=== PATIENT | male | born 1990 | race Caucasian/White ===

== ENCOUNTER 2017-08-15 11:20 | Emergency (ER) | payer MEDICAID, OTHER ==
[2017-08-15 12:20] LABS: ABS Basophils 0 10^3/ul (0-0.2); ABS Eosinophils 0.1 10^3/ul (0-0.6); ABS Lymphocytes 1.6 10^3/ul (1.0-4.8); ABS Monocytes 0.5 10^3/ul (0-0.8); ABS Neutrophils 3.1 10^3/ul (1.5-7.7); ABS Nucleated RBC 0 10^3/ul; Eosinophil % 1.5 % (0-6); Hematocrit 41 % (42-52); Hemoglobin 14.2 g/dl (14.0-18.0); Lymphocyte % 29.8 % (25-47); Mean Corpuscular HGB Conc 34 g/dl (31-36); Mean Corpuscular Hemoglobin 31 pg (27-31); Mean Corpuscular Volume 92 fL (80-94); Mean Platelet Volume 8.2 um3 (7.4-10.4); Nucleated Red Blood Cells % 0.1; Platelet Count 245 10^3/ul (150-450); Red Blood Count 4.52 10^6/ul (4.0-5.4); Red Cell Distribution Width 15 % (10.5-15); White Blood Count 5.3 10^3/ul (3.5-10.8)
[2017-08-15] MEDS ORDERED: Acetaminophen TAB* 325 MG PO ONE (12:37)
[2017-08-15] MEDS ORDERED: Acetaminophen TAB* 325 MG ONE (12:40)
[2017-08-15 12:41] LABS: EGFR Non-African American 121.2 (>60)
[2017-08-15 12:52] LABS: Urine Appearance Clear; Urine Blood Negative (Negative); Urine Color Yellow; Urine Ketones Negative (Negative); Urine Protein Negative (Negative); Urine Specific Gravity 1.008 (1.010-1.030); Urine Urobilinogen Positive (Negative)
--- NOTE | 2017-08-15 13:00 | RAD ---
HISTORY: Fall after drug overdose COMPARISONS: None TECHNIQUE: Multiple contiguous axial CT scans were obtained of the head without intravenous contrast. FINDINGS: HEMORRHAGE/INFARCT: There is no hemorrhage or acute infarct. MASSES/SHIFT: There is no mass or shift. EXTRA-AXIAL SPACES: There are no extra-axial fluid collections. SULCI AND VENTRICLES: The sulci and ventricles are normal in size and position for the patient's stated age. CEREBRUM: There are no focal parenchymal abnormalities. BRAINSTEM: There are no focal parenchymal abnormalities. CEREBELLUM: There are no focal parenchymal abnormalities. VESSELS: The vessels are grossly normal. PARANASAL SINUSES: The paranasal sinuses are clear. ORBITS: The orbits are unremarkable. BONES AND SOFT TISSUE: No bone or soft tissue abnormalities are noted. OTHER: None IMPRESSION: NO ACUTE INTRACRANIAL PATHOLOGY.
--- NOTE | 2017-08-15 13:02 | RAD ---
HISTORY: Fall, right jaw pain COMPARISONS: None TECHNIQUE: Multiple contiguous axial CT scans were obtained of the face without intravenous contrast, with coronal and sagittal multiplanar reformations. FINDINGS: BONES: There is no displaced fracture or dislocation. The orbital rim is intact. The zygomatic arch is intact. The pterygoid plates are intact. ORBITS: The globes are round. The optic nerves are symmetric. The extraocular musculature is normal. There is no post septal or intraconal inflammatory change. There is no retrobulbar hematoma. PARANASAL SINUSES: There is mild polypoid mucosal thickening versus small mucous retention cyst of the maxillary sinuses bilaterally. There is partial opacification of the ethmoid air cells anteriorly on the right. The nasal septum is deviated to the left with left-sided spurring. BRAIN AND SOFT TISSUE: Unremarkable. OTHER: None. IMPRESSION: 1. NO FACIAL FRACTURE. 2. MILD SINUS MUCOSAL INFLAMMATORY DISEASE, WITHOUT AIR-FLUID LEVEL TO SUGGEST ACUTE SINUSITIS.
[2017-08-15] MEDS ORDERED: Ibuprofen TAB* 600 MG ONE ×2 (13:56)
[2017-08-15] MEDS ORDERED: Ibuprofen TAB* 600 MG PO ONE (13:57)
[2017-08-16] MEDS ORDERED: Nicotine Inhaler* 10 MG AMP INH PRN (09:16)
[2017-08-16] MEDS ORDERED: Mouth Piece, Nicotine* 1 EACH CARTRIDGE INH PRN (09:16)
--- NOTE | 2017-08-16 09:52 | UC ---
- Progress Note Progress Note: Patient is up and ambulatory in flex unit. In control of behavior. Patient requested nicotine inhaler. Plan is to discharge patient to mothers home this day. Patient is communicating with RN regarding safe discharge plan. No physical complaints - Consult/PCP Time Called: 11:37 Course/Dx - Diagnoses Provider Diagnoses: Inhalant abuse, Syncope, Suicidal ideation Discharge - Sign-Out/Discharge Documenting (check all that apply): Receiving Sign-Out Receiving patient FROM: Jordy Ferreira - Discharge Plan Condition: Stable Referrals: No Primary Care Phys,NOPCP [Primary Care Provider] - - Billing Disposition and Condition Condition: STABLE
--- NOTE | 2017-08-16 10:06 | CONSULT ---
Consult Consult: Mr. Recio presented on an earlier shift and was medically cleared.He had a MHE this AM and they felt that he was safe for D/C. He is homeless but is going to stay with his mother china and had an appt. to [place] [facility] [place] He is S/C'd in stable condition with a diagnosis of mood disorder.
[2017-08-16 11:08] VITALS: BP 134/85
== END 2017-08-16 11:04 | disposition home or self-care (01) ==
LOC: ED 11:20
DX: F18.10 Inhalant abuse, uncomplicated (principal); R55 Syncope and collapse; R45.851 Suicidal ideations; R51 Headache; Z59.0 Homelessness
CPT/HCPCS: 36415; 70450; 70486; 80053; 80307; 80320; 80329; 81003; 81015; 82550; 84443; 84484; 85025; 87086; 93005; 99285; A9270-GY; G0480

== ENCOUNTER 2017-08-22 11:18 | Emergency (ER) | payer MEDICAID ==
[2017-08-22] MEDS ORDERED: LORazepam INJ* 2 MG/ML 1 ML VIAL IV ONE (11:30)
[2017-08-22] MEDS ORDERED: diPHENhydraMINE IV* 50 MG/ML 1 ml VIAL (BENADRYL) IM ONE (11:30)
[2017-08-22] MEDS ORDERED: Haloperidol INJ IV/IM* 5 MG/ML AMP IM ONE (11:30)
[2017-08-22 12:50] LABS: ABS Basophils 0 10^3/ul (0-0.2); ABS Eosinophils 0.1 10^3/ul (0-0.6); ABS Lymphocytes 1.3 10^3/ul (1.0-4.8); ABS Monocytes 0.6 10^3/ul (0-0.8); ABS Neutrophils 6.4 10^3/ul (1.5-7.7); ABS Nucleated RBC 0 10^3/ul; Eosinophil % 1.4 % (0-6); Hematocrit 39 % (42-52); Hemoglobin 13.3 g/dl (14.0-18.0); Lymphocyte % 15.8 % (25-47); Mean Corpuscular HGB Conc 35 g/dl (31-36); Mean Corpuscular Hemoglobin 31 pg (27-31); Mean Corpuscular Volume 91 fL (80-94); Nucleated Red Blood Cells % 0; Platelet Count 240 10^3/ul (150-450); Red Blood Count 4.25 10^6/ul (4.0-5.4); Red Cell Distribution Width 15 % (10.5-15); White Blood Count 8.4 10^3/ul (3.5-10.8)
--- NOTE | 2017-08-23 05:51 | ED ---
Doris Camejo Abhishek, scribed for Juan Carlos Zimmerman MD on 08/23/17 at 0036 . Progress - Progress Note Progress Note: This is pt is a sign out from Dr. Keating pending disposition and MHE. The pt will be monitored through out the night. - Consult/PCP Time Called: 11:26 Course/Dx - Course Course Of Treatment: The pt will be signed out to Dr. Muro. 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 - Diagnoses Provider Diagnoses: Substance abuse Discharge - Sign-Out/Discharge Documenting (check all that apply): Sign-Out Patient Signing out patient TO: Artemio Muro - Discharge Plan Referrals: No Primary Care Phys,NOPCP [Primary Care Provider] - The documentation as recorded by the Doris brink Abhishek accurately reflects the service I personally performed and the decisions made by Erasmo abraham Kirk, MD.
--- NOTE | 2017-08-23 09:19 | PN ---
ED Flex Patient Progress Note Date of Service: 08/23/17 Subjective: This is a 27 year-old M who is pending admission to [facility] / transfer to another psychiatric facility / discharge to home / or being observed secondary to ___substance abuse disorder, criminal trespassing, combative and aggressive behavior, verbalizing wish to . Pt offers no complaints at this time he is not participating in evaluation, he awoke and ate his breakfast, but was lying in bed refusing to roll over and engage with me---he verbalizes he wanted to be left alone, that he does not have an issue with substance abuse and wants to ._Patient is found in no distress resting comfortably, respirations easy and unlabored, easily responded to verbal stimulation. Objective: Vitals: Most recent vital signs documented below. General NAD, Alert and oriented x3. Last attempt at vital sign s was refused by patient Heart: rrr at bpm Lungs: CTA or with rales, rhonchi, wheezing Laboratory: Current laboratory results documented below. Assessment: 27 y/o male with multiple social,substance abuse issues. currently resting comfortable and limited willingness to engage with providers. Patient does offer a wish to Plan: Pending psychiatric disposition for admission or discharge will follow up daily.. Vital Signs Temp Pulse Resp BP Pulse Ox 97.8 F 96 16 126/72 98 08/22/17 22:45 08/22/17 22:45 08/22/17 22:45 08/22/17 22:45 08/22/17 22:45 Lab Results - Entire Visit 08/22/17 08/22/17 12:34 12:34 WBC 8.4 RBC 4.25 Hgb 13.3 L Hct 39 L MCV 91 MCH 31 MCHC 35 RDW 15 Plt Count 240 MPV 8.0 Neut % (Auto) 75.9 Lymph % (Auto) 15.8 L [place] % (Auto) 6.6 Eos % (Auto) 1.4 Baso % (Auto) 0.3 Absolute Neuts (auto) 6.4 Absolute Lymphs (auto) 1.3 Absolute Monos (auto) 0.6 Absolute Eos (auto) 0.1 Absolute Basos (auto) 0 Absolute Nucleated RBC 0 Nucleated RBC % 0 Sodium 136 L Potassium 3.5 Chloride 101 Carbon Dioxide 23 Anion Gap 12 H BUN 15 Creatinine 0.80 Est GFR ( Amer) 149.1 Est GFR (Non-Af Amer) 116.0 BUN/Creatinine Ratio 18.8 Glucose 94 Calcium 9.4 Total Bilirubin 1.30 H AST 183 H ALT 443 H Alkaline Phosphatase 77 Total Protein 7.0 Albumin 4.0 Globulin 3.0 Albumin/Globulin Ratio 1.3 TSH 0.50 Salicylates < 2.50 Acetaminophen 18 Serum Alcohol < 10
--- NOTE | 2017-08-23 12:29 | PN ---
Progress Note - Progress Note SOAP: Subjective: [] Objective: [] Assessment: [] Plan: []
[2017-08-23 15:28] VITALS: BP 0/0
--- NOTE | 2017-08-23 15:43 | ED ---
I, Indira Meerdith, scribed for Artemio Muro MD on 08/23/17 at 1015 . Progress - Progress Note Progress Note: This is pt is a sign out from Dr. Keating pending disposition and MHE. The pt will be monitored through out the night. The pt is a sign out from Dr. Zimmerman to Dr. Muro pending re-eval. - Consult/PCP Time Called: 11:26 Course/Dx - Course Course Of Treatment: The pt will be signed out to Dr. Muro. 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 - Diagnoses Provider Diagnoses: Substance abuse Discharge - Sign-Out/Discharge Documenting (check all that apply): Discharge - DISCHARGE HOME STABLE AFTER MHE - Discharge Plan Condition: Stable Disposition: HOME Referrals: No Primary Care Phys,NOPCP [Primary Care Provider] - - Billing Disposition and Condition Condition: STABLE Disposition: HOME The documentation as recorded by the Masoud brink Stephanie accurately reflects the service I personally performed and the decisions made by , Artemio Muro MD.
--- NOTE | 2017-08-23 21:34 | ED ---
Alexa Camejo Julia, scribed for Benjamin Keating on 08/22/17 at 1132 . Substance Abuse/Use - HPI Summary HPI Summary: This patient is a 27 year old M [place] [facility] [place] (2208) due to substance abuse. Officer states that pts family called because they suspected that the pt may have taken bath salts. He states the pt is having delusions and is talking to people who are not there. Patient was very agitated and was crying when brought into ED, and is hostile with staff. Officer reports a hx of mental health issues. - History Of Current Complaint Chief Complaint: EDMentalHealth Stated Complaint: 2208 Time Seen by Provider: 08/22/17 11:30 Hx Obtained From: Other: - Officer Hx From Patient Unobtainable Due To: Other - substance abuse Ingestion History: Type/Name Of Drug - potential bath salt use Character: Other - agitated and crying Associated Signs And Symptoms: Hostile Related Hx: Prior Psych Admission - Allergies/Home Medications Allergies/Adverse Reactions: Allergies Allergy/AdvReac Type Severity Reaction Status Date / Time shellfish derived Allergy See Comment Verified 08/15/17 11:42 PMH/Surg Hx/FS Hx/Imm Hx Sensory History: Denies: Hx Legally Blind Opthamlomology History: Denies: Hx Legally Blind Psychiatric History: Reports: Hx Substance Abuse Denies: Hx Eating Disorder Infectious Disease History: No Infectious Disease History: Denies: Traveled Outside the [place] in Last 30 Days - Family History Known Family History: Negative: Cardiac Disease, Hypertension, Diabetes - Social History Lives: With Family Alcohol Use: Occasionally Substance Use Type: Reports: None Smoking Status (MU): Light Every Day Tobacco Smoker Review of Systems Positive: Other - substance abuse Positive: Other - agitated and upset All Other Systems Reviewed And Are Negative: Yes Physical Exam - Summary Physical Exam Summary: Appearance: Well appearing, no pain distress Skin: warm, dry, reflects adequate perfusion Head/face: normal Eyes: EOMI, NEENA ENT: normal Neck: supple, non-tender Respiratory: CTA, breath sounds present Cardiovascular: RRR, pulses symmetrical Abdomen: non-tender, soft Bowel: present Musculoskeletal: normal, strength/ROM intact Neuro: normal, sensory motor intact, A&Ox3 Psych: depressed/angry affect Triage Information Reviewed: Yes Vital Signs On Initial Exam: Initial Vitals Temp Pulse Resp BP Pulse Ox 98.7 F 108 22 158/98 98 08/22/17 11:26 08/22/17 11:26 08/22/17 11:26 08/22/17 11:26 08/22/17 11:26 Vital Signs Reviewed: Yes Diagnostics - Vital Signs Vital Signs Temp Pulse Resp BP Pulse Ox 08/22/17 11:26 98.7 F 108 22 158/98 98 - Laboratory Result Diagrams: 08/22/17 12:34 08/22/17 12:34 Lab Statement: Any lab studies that have been ordered have been reviewed, and results considered in the medical decision making process. Course/Dx - Course Course Of Treatment: Pt is brought to ED by police for substance abuse and mental health evaluation. Officer and pt's family suspects bath salt use. Pt is brought into ED restrained by officers, very upset, hostile, and uncooperative. Pt was restrained upon arrival. Pt is given Benadryl, Haldol, and Ativan. Pt slept while in ED. Pt woke up and walked to bathroom. Labs were obatined, and patient is awaiting mental health evaluation. Pt is signed out to Dr. Zimmerman. - Diagnoses Provider Diagnoses: Substance abuse Discharge - Sign-Out/Discharge Documenting (check all that apply): Sign-Out Patient Signing out patient TO: Juan Carlos Zimmerman - MHE and dispo - Discharge Plan Referrals: No Primary Care Phys,NOPCP [Primary Care Provider] - The documentation as recorded by the Alexa brink Julia accurately reflects the service I personally performed and the decisions made by , Benjamin Keating.
== END 2017-08-23 15:25 | disposition home or self-care (01) ==
LOC: ED 11:18
DX: F19.10 Other psychoactive substance abuse, uncomplicated (principal); F17.210 Nicotine dependence, cigarettes, uncomplicated
CPT/HCPCS: 36415; 80053; 80320; 80329; 84443; 85025; 96372; 96374; 99284; G0480; J1200; J1630; J2060

== ENCOUNTER 2024-01-31 23:06 | Observation (INO) ==
[2024-02-01] MEDS: LORazepam 2 mg VIAL 1 ml IM ONE (00:09)
[2024-02-01] MEDS: Haloperidol 5 mg/ml SDV IV/IM 5 MG/ML AMP IM ONE (00:09)
[2024-02-01 01:07] LABS: ABS Lymphocytes 1.2 10^3/uL (1.0-4.8); ABS Monocytes 1.2 10^3/uL (0.0-1.1); ABS Neutrophils 10.8 10^3/uL (1.5-7.6); Hematocrit 38.5 % (38-53); Hemoglobin 12.9 g/dL (13.2-16.3); Lymphocyte % 9.3 %; Mean Corpuscular Hemoglobin 28.1 pg (27-33); Mean Corpuscular Hgb Conc 33.6 g/dL (31-36); Mean Corpuscular Volume 83.6 fL (80-97); Mean Platelet Volume 8.9 fL (7.5-11.2); Platelet Count 267 10^3/uL (150-450); Red Blood Count 4.61 10^6/uL (4.06-5.63); Red Cell Distribution Width 14.7 % (12-17); White Blood Count 13.3 10^3/uL (3.6-10.2)
[2024-02-01 01:35] LABS: ALT 97 U/L (7-52); AST 181 U/L (13-39); Acetaminophen < 15 mcg/mL; Albumin 4.9 g/dL (3.2-5.2); Albumin/Globulin Ratio 1.3 (1-3); Alcohol, S < 13 mg/dL (<13); Alkaline Phosphatase 75 U/L (35-149); Anion Gap 18 mmol/L (2-16); Blood Urea Nitrogen 61 mg/dL (6-24); CO2 Carbon Dioxide 16 mmol/L (22-32); Calcium 9.5 mg/dL (8.6-10.3); Chloride 101 mmol/L (101-111); Creatinine, Serum 2.72 mg/dL (0.67-1.17); Globulin 3.7 g/dL (2-4); Glucose 168 mg/dL (70-100); Potassium 3.7 mmol/L (3.5-5.0); Salicylate < 2.50 mg/dL (<30); Sodium 135 mmol/L (135-145); Total Protein 8.6 g/dL (6.4-8.9); eGFR CKD-EPI 30.7 (>60)
[2024-02-01 01:49] LABS: TSH Ultra Thyroid Stim Horm 0.83 mcIU/mL (0.34-5.60)
[2024-02-01] MEDS ORDERED: Ondansetron 4 mg VIAL 2 MG/ML 2 ml VIAL IV PRN (07:18)
[2024-02-01 09:00] LABS: Urine Appearance Clear; Urine Bilirubin Negative (Negative); Urine Blood 2+ (Negative); Urine Color Yellow; Urine Glucose Negative (Negative); Urine Ketones 1+ (Negative); Urine Nitrite Negative (Negative); Urine Protein 1+ (>=30 mg/dL) (Negative); Urine Specific Gravity 1.026 (1.002-1.030); Urine Urobilinogen Negative (Negative); Urine pH 5.5 (5.0-8.0)
[2024-02-01 09:12] LABS: Urine Bacteria Absent /HPF (Absent); Urine Red Blood Cell Trace(0-2/hpf) /HPF (0-Trace); Urine Squamous Epithelial Cell Present /HPF (Absent); Urine White Blood Cell Trace(0-5/hpf) /HPF (0-Trace)
[2024-02-01 09:29] LABS: Creatine Kinase 11307 U/L (10-223)
[2024-02-01 09:29] LABS: Urine Benzodiazepine Screen None Detected (None Detect); Urine Cannabinoids Screen None Detected (None Detect); Urine Opiates Screen None Detected (None Detect)
[2024-02-01] MEDS: Lactated Ringers 1000 ml BAG 1,000 ML IV SCH ×2 (10:00→17:27)
[2024-02-01] MEDS: LORazepam 2 mg VIAL 1 ml IM PRN (14:52)
[2024-02-01] MEDS: Haloperidol 5 mg/ml SDV IV/IM 5 MG/ML AMP IM PRN (14:52)
[2024-02-01] MEDS ORDERED: Lorazepam PYXIS KEY PRN (20:12)
[2024-02-01] MEDS ORDERED: LORazepam 2 mg VIAL 1 ml IM PRN (20:12)
[2024-02-01 21:15] LABS: Calcium 9.1 mg/dL (8.6-10.3); Creatinine, Serum 0.99 mg/dL (0.67-1.17); eGFR CKD-EPI 103.2 (>60)
[2024-02-02 10:20] VITALS: BP 122/72
[2024-02-02 11:59] LABS: Calcium 9.3 mg/dL (8.6-10.3); Creatinine, Serum 0.81 mg/dL (0.67-1.17); Potassium 4.7 mmol/L (3.5-5.0); eGFR CKD-EPI 119.4 (>60)
== END 2024-02-02 14:35 | disposition home or self-care (01) ==
LOC: ED 23:06 → EDHOLD 23:06 → MED 02-01 11:02
PROVIDERS: ADMIT Student in an Organized Health Care Education/Training Program; ATTEND Student in an Organized Health Care Education/Training Program